=== PATIENT | male | born 1995 | race African-American/Black ===

== ENCOUNTER 2018-06-13 20:11 | Emergency (ER) | payer OTHER, SELFPAY ==
[2018-06-13 20:33] VITALS: BP 136/84; PULSE 65; RESP 16; TEMP 36.6; O2SAT 99
[2018-06-13 23:13] VITALS: BP 125/77; PULSE 71; RESP 16; TEMP 36.4; O2SAT 100
[2018-06-14 01:36] VITALS: BP 119/69; PULSE 90; RESP 16; TEMP 36.9; O2SAT 100
[2018-06-14] MEDS: TRIMETH/SULFA 160/800 (DS) TABLET 1 TAB PO (01:40)
--- NOTE | 2018-06-19 19:46 | ED_ITS ---
HPI - Skin/Abscess/Foreign Bdy General Chief complaint: Skin/Abscess/Foreign Body Stated complaint: states he has a cyst near groin Time Seen by Provider: 06/13/18 23:49 Source: patient Mode of arrival: ambulatory Limitations: no limitations History of Present Illness HPI narrative: Patient complains of a draining lesion posterior to his perineum on the left for the last few days. Patient states that hurts to sit down, but that he has been able to get the area to drain. He states he has had these before, and they normally drain and heal on their own. However, this 1 seemed bigger than others and has been painful so he decided to get checked. No fevers. No lesions anywhere else. No dysuria, penile discharge, or other symptoms of STD. No pain with defecation. Pain is 5/10. Pressure makes it worse. Nothing makes it better. Related Data Previous Rx's Medication Instructions Recorded sulfamethoxazole-trimethoprim 1 tab PO BID #14 tab 06/14/18 [Bactrim DS] Allergies Allergy/AdvReac Type Severity Reaction Status Date / Time No Known Drug Allergies Allergy Verified 06/13/18 20:33 Review of Systems Review of Systems All systems reviewed & are unremarkable except as noted in HPI and below Constitutional Denies chills, Denies fever(s), Denies lethargy and Denies weakness Eyes Denies change in vision, Denies eye discharge, Denies irritation and Denies loss of vision ENT Ears, Nose, Mouth, and Throat: Denies change in voice, Denies neck pain and Denies sore throat Cardiovascular Denies chest pain, Denies irregular heart rhythm, Denies lightheadedness, Denies palpitations, Denies dyspnea, Denies dyspnea on exertion and Denies orthopnea Respiratory Denies cough, Denies dyspnea, Denies dyspnea on exertion and Denies wheezing Gastrointestinal Gastrointestinal: Denies abdominal pain, Denies change in bowel habits, Denies diarrhea, Denies nausea and Denies vomiting Genitourinary Denies hematuria, Denies flank pain, Denies urinary incontinence and Denies urinary urgency Musculoskeletal Denies neck pain Integumentary/Breasts Denies pruritus, Denies erythema, Denies rash and Reports wounds (Perineal) Neurologic Denies confusion, Denies loss of vision and Denies weakness Psychiatric Denies anxiety, Denies confusion, Denies depression, Denies homicidal ideation and Denies suicidal ideation Endocrine Denies palpitations Hematologic/Lymphatic Denies easy bruising Allergic/Immunologic Denies wheezing [facility] Medical History Healthy adult (Acute) Surgical History No pertinent past surgical history (Acute) Social History Smoking Status: Never smoker Exam Initial Vital Signs Initial Vital Signs: Vital Signs Temperature 97.9 F 06/13/18 20:33 Pulse Rate 65 06/13/18 20:33 Respiratory Rate 16 06/13/18 20:33 Blood Pressure 136/84 06/13/18 20:33 Pulse Oximetry 99 06/13/18 20:33 Const General: cooperative and well developed Nutritional Appearance: well nourished Orientation: alert, awake, oriented x3 and not confused HENIN Head: normocephalic and atraumatic Ears: external ears normal Nose: external nose normal and No nasal discharge Face and sinus: face symmetric and No dry mucous membranes Mouth: oral mucosae normal and moist mucous membranes Teeth and gingiva: dentition normal Eyes General: appearance normal, both eyes and all related structures Eyelids: eyelids normal Conjunctivae: conjunctivae normal Sclera: sclerae normal Pupils: PERRL EOM: EOM intact bilaterally Neck Neck: normal visual inspection, trachea midline, No lymphadenopathy, No midline deformity and No JVD Lymphatic: No lymphedema Chest Chest: normal inspection of the chest Resp Effort & Inspection: normal respiratory effort, able to speak in complete sentences, no respiratory distress and no use of accessory muscles Back/Spine/Pelvis Back: No CVA tenderness Cervical Spine: cervical ROM normal and No pain with cervical ROM Thoracic/Lumbar Spine: thoracic and lumbar spine normal to inspection Skin General: No jaundice and No petechiae Lesions: lesion noted (The patient has a 4 cm area of soft tissue edema without induration or fluctuance, located just posterior to his left perineal area. There is a moist wound at the apex of the area which appears to have previously been draining, but from which nothing is expressible this time.) Neuro General: alert, oriented x3, gait normal and no focal motor deficits Speech: speech normal Extrem General: full ROM, no clubbing, cyanosis or edema, no pedal edema and no calf tenderness Psych Appearance: well kempt Mental Status: mental status grossly normal Attitude: cooperative Thought Content: normal and suicidality Judgment: judgment good Course Course Narrative: I did and evidence of an abscess in need of drainage. There is no induration or fluctuance, and the patient did have a wound from which any drainage appeared to have already drained. I did discuss with the patient the need for oral antibiotics and that taking Sitz baths and applying hot packs would be helpful. Patient has been given his 1st dose of antibiotics here in the emergency department. We have discussed the usual indications for return. Orders Ordered: Discontinued Medications Trimethoprim/Sulfamethoxazole (Bactrim Ds) 1 tab PO NOW ONE Stop: 06/14/18 01:17 Last Admin: 06/14/18 01:40 Dose: 1 tab Vital Signs - 8 hr 06/13/18 20:33 06/13/18 23:13 Temperature 97.9 F 97.6 F Pulse Rate 65 71 Respiratory Rate 16 16 Blood Pressure 136/84 Blood Pressure [Right Arm] 125/77 Pulse Oximetry 99 100 MDM - Skin/Abscess/Foreign Bdy Medical Records Attestation: I reviewed the patient's medical records. Discharge Plan Departure Patient Disposition: Home Clinical Impression: Abscess of skin or subcutaneous tissue Discharge Date/Time: 06/14/18 01:43 Interventions: ED Discharge Assessment Last Done: 06/14/18 01:41 Instructions: DI for Skin Abscess Prescriptions: New sulfamethoxazole-trimethoprim [Bactrim DS] 800-160 mg tablet 1 tab PO BID Qty: 14 RF: 0 Referrals: [facility] [Provider Group]
== END 2018-06-14 01:43 | disposition home or self-care (01) ==
PROVIDERS: Emergency Provider Emergency Medicine
DX: L02.91 Cutaneous abscess, unspecified (principal)
CPT/HCPCS: 99282; 99283

== ENCOUNTER 2019-04-30 16:07 | Emergency (ER) | payer OTHER, SELFPAY ==
[2019-04-30 16:27] VITALS: BP 135/71; PULSE 77; RESP 18; TEMP 37.1; O2SAT 99
[2019-04-30 17:56] VITALS: BP 123/73; PULSE 73; RESP 16; O2SAT 98
[2019-04-30] MEDS: TRIMETH/SULFA 160/800 (DS) TABLET 1 TAB PO (18:57)
--- NOTE | 2019-04-30 20:20 | ED_ITS ---
HPI - Skin/Abscess/Foreign Bdy <PEDRO Solomon - Last Filed: 04/30/19 20:24> General Chief complaint: Skin/Abscess/Foreign Body Stated complaint: Cyst Time Seen by Provider: 04/30/19 18:21 Source: patient Mode of arrival: Ambulatory Limitations: no limitations History of Present Illness HPI narrative: The patient is a 24-year-old male who presents with a chief complaint of a cyst. He states it has been present for approximately 10 days, 3 days ago became red. He denies any fevers nausea vomiting or diarrhea. Denies any chest pain or shortness of breath. He states that is on the left side of his groin. He states he has had them before, received antibiotics and it went away. Related Data Previous Rx's Medication Instructions Recorded sulfamethoxazole-trimethoprim 1 tab PO BID #14 tab 06/14/18 [Bactrim DS] sulfamethoxazole-trimethoprim 1 tab PO BID #14 tab 04/30/19 [Bactrim DS] Allergies Allergy/AdvReac Type Severity Reaction Status Date / Time No Known Drug Allergies Allergy Verified 06/13/18 20:33 Review of Systems <PEDRO Solomon - Last Filed: 04/30/19 20:24> Review of Systems Narrative: GENERAL: Denies chills, fatigue, malaise, fever, sweats. HEENT: Denies sinus pain, ear pain, sore throat, difficulty swallowing, dizziness. RESPIRATORY: Denies dyspnea, cough, wheezing, hemoptysis, sputum. CARDIOVASCULAR: Denies chest pain, palpitations, orthopnea, edema, GASTROINTESTINAL: Denies nausea, vomiting, abdominal pain, diarrhea, constipation, melena. : Denies dysuria, frequency, incontinence, hematuria, urinary retention. MUSCULOSKELETAL: denies weakness, joint pain, or bony pain SKIN: See HPI NEUROLOGIC: Denies weakness, headache, numbness, change in speech, confusion, seizures, incoordination. PSYCHIATRIC: No concerning psychosocial issues. 12 point review of systems is negative except for those stated above Patient History <PEDRO Solomon - Last Filed: 04/30/19 20:24> Social History Smoking Status: Never smoker alcohol intake frequency: a few times a week Substance Use Type: does not use Exam <PEDRO Solomon - Last Filed: 04/30/19 20:24> Narrative Exam Narrative: GENERAL: This is a well-nourished, well-developed patient, in no acute distress HEAD: Atraumatic. Normocephalic. No temporal or scalp tenderness. EYES: Pupils equal round and reactive. Extraocular motions intact. No scleral icterus. No injection or drainage. ENT: Nose without bleeding, purulent drainage or septal hematoma. Throat without erythema, tonsillar hypertrophy or exudate. Uvula midline. Airway patent. NECK: Trachea midline. No JVD or lymphadenopathy. Supple, nontender, no meningeal signs. CARDIOVASCULAR: Regular rate and rhythm RESPIRATORY: No cough. No increased respiratory effort. No accessory muscle use. EXTREMITIES: No clubbing, cyanosis, or edema. No joint tenderness, effusion, or edema noted. BACK: Nontender without deformity or crepitance. No flank tenderness. NEURO: AOx3. SKIN: Lior FUNES as telephone claims representative 0.5x 0.5 erythema with center pustule noted left inguinal area. No active drainage. Initial Vital Signs Initial Vital Signs: Vital Signs Temperature 98.8 F 04/30/19 16:27 Pulse Rate 77 04/30/19 16:27 Respiratory Rate 18 04/30/19 16:27 Blood Pressure 135/71 04/30/19 16:27 Pulse Oximetry 99 04/30/19 16:27 <Marisol Duke DO - Last Filed: 04/30/19 21:59> Initial Vital Signs Initial Vital Signs: Vital Signs Temperature 98.8 F 04/30/19 16:27 Pulse Rate 77 04/30/19 16:27 Respiratory Rate 18 04/30/19 16:27 Blood Pressure 135/71 04/30/19 16:27 Pulse Oximetry 99 04/30/19 16:27 Course <PEDRO Solomon - Last Filed: 04/30/19 20:24> Orders Ordered: Discontinued Medications Trimethoprim/Sulfamethoxazole (Bactrim Ds) 1 tab PO NOW ONE Stop: 04/30/19 18:53 Last Admin: 04/30/19 18:57 Dose: 1 tab Documented by: QUINTON Vital Signs Vital signs: Vital Signs - 8 hr 04/30/19 16:27 04/30/19 17:56 Temperature 98.8 F Pulse Rate 77 73 Respiratory Rate 18 16 Blood Pressure 135/71 Blood Pressure [Left Arm] 123/73 Pulse Oximetry 99 98 <Marisol Duke DO - Last Filed: 04/30/19 21:59> Orders Ordered: Discontinued Medications Trimethoprim/Sulfamethoxazole (Bactrim Ds) 1 tab PO NOW ONE Stop: 04/30/19 18:53 Last Admin: 04/30/19 18:57 Dose: 1 tab Documented by: QUINTON Vital Signs Vital signs: Vital Signs - 8 hr 04/30/19 16:27 04/30/19 17:56 Temperature 98.8 F Pulse Rate 77 73 Respiratory Rate 18 16 Blood Pressure 135/71 Blood Pressure [Left Arm] 123/73 Pulse Oximetry 99 98 MDM - Skin/Abscess/Foreign Bdy <RAFAEL Solomon-BC - Last Filed: 04/30/19 20:24> MDM Narrative Medical decision making narrative: The patient is a 24-year-old male who presents with a chief complaint of a cyst. Exam illustrate a small abscess. The patient has no signs of systemic illness, has no fever, eating and drinking well and normal vital signs. I discussed at length continued use of warm packs, restarting Bactrim. Patient was given 1st dose of antibiotics in the emergency department. I did offer to I and D the abscess, but he would like to try conservative measures 1st. I discussed that this may or may not help work, and suggest that he follow up with primary care provider. Discussed come back to the emergency department for any acute concerns such as inability keep down fluids etc. The patient has no questions or concerns upon discharge and states understanding of return precautions as well as plan of care. Discharge Plan Departure Patient Disposition: Home Clinical Impression: Abscess of skin or subcutaneous tissue Qualifiers: Site of cutaneous abscess: trunk Site of cutaneous abscess of trunk: groin Qualified Code(s): L02.214 - Cutaneous abscess of groin Discharge Date/Time: 04/30/19 19:19 Instructions: DI for Skin Abscess Activity Restrictions/Additional Instructions: I have started you on an antibiotic. Please use warm compresses several times a day. I encourage you to follow up with primary care provider in a few days for reche ck. As I discussed, this may respond well to just the antibiotics and warm compresses, but it may need to be lanced in the future. Please monitor for fevers, inability keep down fluids and come back to the emergency department for any acute concerns Prescriptions: New sulfamethoxazole-trimethoprim [Bactrim DS] 800-160 mg tablet 1 tab PO BID Qty: 14 RF: 0 No Action sulfamethoxazole-trimethoprim [Bactrim DS] 800-160 mg tablet 1 tab PO BID Qty: 14 RF: 0
== END 2019-04-30 19:19 | disposition home or self-care (01) ==
PROVIDERS: Emergency Provider Nurse Practitioner Family
DX: L02.214 Cutaneous abscess of groin (principal)
CPT/HCPCS: 99282; 99283